=== PATIENT | female | born 1980 | race Caucasian/White ===

== ENCOUNTER 2019-01-24 00:09 | Emergency (ER) | payer OTHER ==
--- NOTE | 2019-01-24 00:44 | ED ---
Psychiatric Complaint - HPI Summary HPI Summary: This patient is a 38 year old female presenting to [facility] with a chief complaint of suicidal ideation for years. She states she wants to shoot herself, but has never had access to a gun. Pt has been drinking today to"numb myself". She reports that her present boyfriend snorts valium, and she can't afford it. She states she quit drinking, using CBD, quit everything, then began drinking again today, and now wants figuratively states she wants to shoot herself. She says she does not actually own a gun and has never touched one. - History Of Current Complaint Chief Complaint: EDSuicidal Time Seen by Provider: 01/24/19 00:21 Hx Obtained From: Patient Onset/Duration: Lasting Weeks Has Suicidal: Reports: Thoughts - Allergies/Home Medications Allergies/Adverse Reactions: Allergies Allergy/AdvReac Type Severity Reaction Status Date / Time No Known Allergies Allergy Verified 01/24/19 01:20 Home Medications: Home Medications Omeprazole 20 mg PO DAILY 01/24/19 [History Confirmed 01/24/19] Prozac* 40 mg PO DAILY 01/24/19 [History Confirmed 01/24/19] PMH/Surg Hx/FS Hx/Imm Hx Endocrine/Hematology History: Denies: Hx Diabetes Cardiovascular History: Denies: Hx Coronary Artery Disease Psychiatric History: Reports: Hx Anxiety Infectious Disease History: No Infectious Disease History: Denies: Traveled Outside the [place] in Last 30 Days - Family History Known Family History: Negative: Hypertension - Social History Substance Use Type: Reports: Marijuana Hx Tobacco Use: Yes Review of Systems Negative: Fever Psychological: Other - Intoxication, suicidal ideation. All Other Systems Reviewed And Are Negative: Yes Physical Exam - Summary Physical Exam Summary: Appearance: well appearing, no pain distress Skin: warm, dry, reflects adequate perfusion Head/face: normal Eyes: EOMI, PERRL ENT: mucous membranes moist Neck: supple, non-tender Respiratory: CTA, breath sounds present Cardiovascular: RRR, pulses symmetrical Abdomen: non-tender, soft Bowel Sounds: present Musculoskeletal: normal, strength/ROM intact Neuro: normal, sensory motor intact, A&Ox3 Triage Information Reviewed: Yes Vital Signs On Initial Exam: Initial Vitals Temp Pulse Resp BP Pulse Ox 98.1 F 69 16 127/78 100 01/24/19 00:12 01/24/19 00:12 01/24/19 00:12 01/24/19 00:12 01/24/19 00:12 Vital Signs Reviewed: Yes Diagnostics - Vital Signs Vital Signs Temp Pulse Resp BP Pulse Ox 01/24/19 00:12 98.1 F 69 16 127/78 100 - Laboratory Result Diagrams: 01/24/19 00:44 01/24/19 00:44 Lab Statement: Any lab studies that have been ordered have been reviewed, and results considered in the medical decision making process. - EKG 0104 Cardiac Rate: NL EKG Rhythm: Sinus Rhythm - [address] Segment: Normal Ectopy: None Summary of EKG Findings: Normal axis, No ST changes. Course/Dx - Course Course Of Treatment: Nurses' notes reviewed. Patient was medically evaluated and cleared other than sobering prior to mental health evaluation. She was observed for several hours in the ER until she sobered. At that time mental health evaluation was performed and the psychiatrist wish to hold her over and reevaluate her in the morning. She will be passed on to the daytime ER physician Dr. Mullins. Iron deficiency anemia should be followed up by her doctor. - Differential Dx/Clinical Impression Differential Diagnosis/HQI/PQRI: Positive: Anxiety, Bipolar Disorder, Depression , Suicidal Ideation Provider Diagnosis: Iron deficiency anemia, Alcohol intoxication, Substance induced mood disorder Discharge - Sign-Out/Discharge Documenting (check all that apply): Sign-Out Patient Signing out patient TO: Tenzin Mullins - At shift change 0700 pending MHE. Patient Received Moderate/Deep Sedation with Procedure: No - Discharge Plan Condition: Stable Referrals: No Primary Care Phys,NOPCP [Primary Care Provider] - Additional Instructions: You have a mild iron deficiency anemia that needs to be followed up by her primary care doctor. - Billing Disposition and Condition Condition: STABLE - Attestation Statements Document Initiated by Scribe: Yes Documenting Scribe: Mynor Ross Provider For Whom Wili is Documenting (Include Credential): Adiel Abdi MD Scribe Attestation: Mynor Hutchinson, scribed for Adiel Abdi MD on 01/24/19 at 0638. Scribe Documentation Reviewed: Yes Provider Attestation: The documentation as recorded by the Mynor ricketts accurately reflects the service I personally performed and the decisions made by me, Adiel Abdi MD Status of Scribe Document: Viewed
[2019-01-24 00:57] LABS: Urine Appearance Clear; Urine Bilirubin Negative (Negative); Urine Blood Negative (Negative); Urine Color Colorless; Urine Glucose Negative (Negative); Urine Ketones Negative (Negative); Urine Nitrite Negative (Negative); Urine Protein Negative (Negative); Urine Specific Gravity 1.001 (1.010-1.030); Urine Urobilinogen Negative (Negative)
[2019-01-24 01:04] LABS: ABS Eosinophils 0.1 10^3/ul (0-0.6); ABS Lymphocytes 1.7 10^3/ul (1.0-4.8); ABS Monocytes 0.5 10^3/ul (0-0.8); ABS Neutrophils 2.8 10^3/ul (1.5-7.7); Eosinophil % 1.1 %; Hematocrit 32 % (35-47); Hemoglobin 10.3 g/dL (12.0-16.0); Lymphocyte % 32.7 %; Mean Corpuscular HGB Conc 32 g/dL (31-36); Mean Corpuscular Hemoglobin 24 pg (27-31); Mean Corpuscular Volume 73 fL (80-97); Mean Platelet Volume 8.4 fL (7.4-10.4); Nucleated Red Blood Cells % 0.1; Platelet Count 236 10^3/uL (150-450); Red Blood Count 4.36 10^6 /uL (3.70-4.87); Red Cell Distribution Width 17 % (10-15); White Blood Count 5.1 10^3/uL (3.5-10.8)
[2019-01-24 01:11] LABS: ALT 22 U/L (7-52); AST 51 U/L (13-39); Albumin 4.5 g/dL (3.2-5.2); Alkaline Phosphatase 49 U/L (34-104); Anion Gap 5 mmol/L (2-11); BUN/Creatinine Ratio 8.9 (8-20); Blood Urea Nitrogen 7 mg/dL (6-24); CO2 Carbon Dioxide 26 mmol/L (22-32); Calcium 8.8 mg/dL (8.6-10.3); Chloride 110 mmol/L (101-111); EGFR African American 98.6 (>60); EGFR Non-African American 81.4 (>60); Globulin 2.2 g/dL (2-4); Glucose 105 mg/dL (70-100); Potassium 3.6 mmol/L (3.5-5.0); Sodium 141 mmol/L (135-145); Total Protein 6.7 g/dL (6.4-8.9)
[2019-01-24 01:17] LABS: Urine Benzodiazepine Screen None Detected (None Detect); Urine Opiates Screen None Detected (None Detect)
[2019-01-24 01:23] LABS: Acetaminophen < 15 mcg/mL; Alcohol 216 mg/dL (<10); Salicylate < 2.50 mg/dL (<30)
[2019-01-24 01:39] LABS: TSH (Thyroid Stimulating Horm) 1.69 mcIU/mL (0.34-5.60)
--- NOTE | 2019-01-24 07:04 | ED ---
Progress - Progress Note Progress Note: RECEIVING SIGN OUT FROM DR. ABDI AT SHIFT CHANGE PENDING MHE. A 38 y/o F presents to ED for MHE due to SI. - Consult/PCP Time Called: 05:10 Course/Dx - Course Course Of Treatment: RECEIVING SIGN OUT FROM DR. ABDI AT SHIFT CHANGE PENDING MHE. - Diagnoses Provider Diagnoses: Substance induced mood disorder - Provider Notifications Discussed Care Of Patient With: Kenny Groves - psych Time Discussed With Above Provider: 11:15 Instructed by Provider To: Other - Patient denying SI. She wants to get her things from her home. Discharge - Sign-Out/Discharge Documenting (check all that apply): Receiving Sign-Out Receiving patient FROM: Adiel Abdi - pending MHE Patient Received Moderate/Deep Sedation with Procedure: No - Discharge Plan Condition: Stable Patient Education Materials: Abuse of Alcohol (ED) Referrals: No Primary Care Phys,NOPCP [Primary Care Provider] - Additional Instructions: You have a mild iron deficiency anemia that needs to be followed up by her primary care doctor. - Billing Disposition and Condition Condition: STABLE - Attestation Statements Document Initiated by Scribe: Yes Documenting Scribe: Mary Jane Valle Provider For Whom Scribe is Documenting (Include Credential): Dr. Tenzin Mullins MD Scribe Attestation: Mary Jane Hutchinson scribed for Dr. Tenzin Mullins MD on 01/24/19 at 1358. Scribe Documentation Reviewed: Yes Provider Attestation: The documentation as recorded by the Mary Jane ricketts accurately reflects the service I personally performed and the decisions made by , Dr. Tenzin Mullins MD Status of Scribe Document: Viewed
[2019-01-24] MEDS ORDERED: FLUoxetine CAP* 20 MG PO ONE (08:04)
[2019-01-24] MEDS ORDERED: Omeprazole CAP (NF) 20 MG CAP.DR PO ONE (08:04)
--- NOTE | 2019-01-24 08:06 | PN ---
ED Flex Patient Progress Note Date of Service: 01/24/19 Subjective: This is a 38 year-old F who is pending admission to [facility] / transfer to another psychiatric facility / discharge to home / or being observed secondary to SI and ETOH intoxication. Pt. examined in room 8 at 0800. She is resting comfortably. Offers no complaints. Objective: Vitals: Most recent vital signs documented below. General NAD, Alert and oriented x3. Laboratory: Current laboratory results documented below. Assessment: SI, ETOH Plan: Pending MHE. Morning medications ordered. Vital Signs Temp Pulse Resp BP Pulse Ox 98.1 F 69 16 127/78 100 01/24/19 00:12 01/24/19 00:12 01/24/19 00:12 01/24/19 00:12 01/24/19 00:12 Lab Results - Entire Visit 01/24/19 01/24/19 01/24/19 00:45 00:45 00:44 WBC RBC Hgb Hct MCV MCH MCHC RDW Plt Count MPV Neut % (Auto) Lymph % (Auto) [place] % (Auto) Eos % (Auto) Baso % (Auto) Absolute Neuts (auto) Absolute Lymphs (auto) Absolute Monos (auto) Absolute Eos (auto) Absolute Basos (auto) Absolute Nucleated RBC Nucleated RBC % Sodium 141 Potassium 3.6 Chloride 110 Carbon Dioxide 26 Anion Gap 5 BUN 7 Creatinine 0.79 Est GFR ( Amer) 98.6 Est GFR (Non-Af Amer) 81.4 BUN/Creatinine Ratio 8.9 Glucose 105 H Calcium 8.8 Total Bilirubin 0.30 AST 51 H ALT 22 Alkaline Phosphatase 49 Total Protein 6.7 Albumin 4.5 Globulin 2.2 Albumin/Globulin Ratio 2.0 TSH 1.69 Beta HCG, Quant 0.60 Urine Color Colorless Urine Appearance Clear Urine pH 6.0 Ur Specific [place] 1.001 L Urine Protein Negative Urine Ketones Negative Urine Blood Negative Urine Nitrate Negative Urine Bilirubin Negative Urine Urobilinogen Negative Ur Leukocyte Esterase Negative Urine Glucose Negative Salicylates < 2.50 Urine Opiates Screen None detected Acetaminophen < 15 Ur Barbiturates Screen None detected Ur Phencyclidine Scrn None detected Ur Amphetamines Screen None detected U Benzodiazepines Scrn None detected Urine Cocaine Screen None detected U Cannabinoids Screen None detected Serum Alcohol 216 H 01/24/19 00:44 WBC 5.1 RBC 4.36 Hgb 10.3 L Hct 32 L MCV 73 L MCH 24 L MCHC 32 RDW 17 H Plt Count 236 MPV 8.4 Neut % (Auto) 55.3 Lymph % (Auto) 32.7 [place] % (Auto) 10.3 Eos % (Auto) 1.1 Baso % (Auto) 0.6 Absolute Neuts (auto) 2.8 Absolute Lymphs (auto) 1.7 Absolute Monos (auto) 0.5 Absolute Eos (auto) 0.1 Absolute Basos (auto) 0.0 Absolute Nucleated RBC 0.0 Nucleated RBC % 0.1 Sodium Potassium Chloride Carbon Dioxide Anion Gap BUN Creatinine Est GFR ( Amer) Est GFR (Non-Af Amer) BUN/Creatinine Ratio Glucose Calcium Total Bilirubin AST ALT Alkaline Phosphatase Total Protein Albumin Globulin Albumin/Globulin Ratio TSH Beta HCG, Quant Urine Color Urine Appearance Urine pH Ur Specific [place] Urine Protein Urine Ketones Urine Blood Urine Nitrate Urine Bilirubin Urine Urobilinogen Ur Leukocyte Esterase Urine Glucose Salicylates Urine Opiates Screen Acetaminophen Ur Barbiturates Screen Ur Phencyclidine Scrn Ur Amphetamines Screen U Benzodiazepines Scrn Urine Cocaine Screen U Cannabinoids Screen Serum Alcohol
[2019-01-24] MEDS ORDERED: Pantoprazole TAB * 40 MG TAB PO ONE (09:00)
[2019-01-24 14:08] VITALS: BP 121/63
== END 2019-01-24 14:07 | disposition home or self-care (01) ==
LOC: ED 00:09
DX: F10.94 Alcohol use, unspecified with alcohol-induced mood disorder (principal); F10.129 Alcohol abuse with intoxication, unspecified; D50.9 Iron deficiency anemia, unspecified
CPT/HCPCS: 36415; 80053; 80307; 80320; 80329; 81003; 84443; 84702; 85025; 85060; 93005; 99285; A9270-GY; G0480